=== PATIENT | male | born 1995 | race Hispanic/Latino ===

== ENCOUNTER 2021-05-07 18:36 | Emergency (ER) | payer MEDICAID, OTHER ==
[~2021-05-07] VITALS: Ht 167.6 cm; Wt 52.2 kg
[2021-05-07] MEDS ORDERED: LIDOCAINE HCL 400MG/20ML VIAL ONE (18:48)
[2021-05-07] MEDS ORDERED: MUPI22OI2 TP (19:19)
[2021-05-07 20:58] VITALS: BP 124/64
[2021-05-07] MEDS ORDERED: TETANUS/DIPHTHERIA TOXOID [ADULT] 0.5 ML VIAL IM ONE (21:00)
== END 2021-05-07 20:35 | disposition home or self-care (01) ==
LOC: EDH 18:36
DX: S61.101A Unspecified open wound of right thumb with damage to nail, initial encounter (principal); W22.8XXA Striking against or struck by other objects, initial encounter; Y93.89 Activity, other specified; Y92.89 Other specified places as the place of occurrence of the external cause; Y99.8 Other external cause status
CPT/HCPCS: 11730; 90471; 90714; 99284; J3490

== ENCOUNTER 2025-02-01 19:00 | Emergency (ER) | payer BC, OTHER ==
[~2025-02-01] VITALS: Ht 165.1 cm; Wt 56.7 kg
[~2025-02-01 19:00] MED LIST: MUPI22OI2 TP
--- NOTE | 2025-02-01 20:08 | NUR ---
SITTIN IN LOBBY, GOOD CHEST RISE AND FALL OBSERVED
--- NOTE | 2025-02-01 20:09 | NUR ---
TRIAGE EDIT, PT RECALLED UPDATED IMMUNIZATION INFORMATION
[2025-02-01 20:10] VITALS: BP 118/76; PULSE 74; RESP 16; TEMP 98; O2SAT 100
--- NOTE | 2025-02-01 20:30 | ERN ---
General Chief Complaint: Laceration/Avulsion Stated Complaint: LACERATION RT EYE Time Seen by MD: 19:12 Time Seen by Midlevel: 19:12 Source: patient History of Present Illness Initial Comments 29-year-old male presents with the superficial laceration to the right upper eyelid that occurred just prior to arrival while he was working under a car. Allergies: Coded Allergies: No Known Allergies (Unverified Allergy, Unknown, 05/07/21) Home Meds Active Scripts Mupirocin (Mupirocin Ointment) 22 Gm Oint, 1 GM TP TID for avulsion for 7 Days, #30 G Prov:LEESA ALBA [employer] 05/07/21 Past Medical History Past Medical History: No Pertinent History Past Surgical History: None Social History Social History: Lives with family ROS Dictation CONSTITUTIONAL: Negative except for HPI HEAD/FACE: Negative except for HPI EENT: Negative except for HPI RESPIRATORY: Negative except for HPI GASTROINTESTINAL/ABDOMINAL: Negative except for HPI GENITOURINARY: Negative except for HPI MUSCULOSKELETAL: Negative except for HPI INTEGUMENTARY: Negative except for HPI NEUROLOGICAL/PSYCH: Negative except for HPI HEMATOLOGIC/LYMPHATIC: Negative except for HPI All Systems Negative, Except as noted above. 13 point review of systems assessed and all negative except for above. Physical Exam Physical Exam Dictation PHYSICAL EXAM: GENERAL: alert,, awake oriented x 3 HEENT: EOMI, Sclera non icteric, moist mucosa NECK: Supple, no JVD, trachea midline LUNGS: Clear breath sounds bilaterally. No wheezes HEART: Regular rate and rhythm. Normal S1 and S2, without murmurs ABD: Abdomen soft, nontender. Bowel sounds present EXT: No clubbing or cyanosis, NEURO: Alert and oriented to person, follows commands SKIN: There is a small1 cm superficial laceration to the right upper eyelid MDM MDM: Differential diagnosis: Eyelid laceration, contusion There are no social concerns with this patient. Prescription drug management Prescriptions will include: None Medical management and examination interpretation discussions were had by me with other qualified healthcare professionals as indicated for the patient's care. ED Course Vital Signs Date Time Temp Pulse Resp B/P (MAP) Pulse Ox O2 Delivery O2 Flow Rate FiO2 02/01/25 20:10 98.1 74 16 118/76 100 Room Air* 0 21 02/01/25 19:02 97.2 77 16 148/81 98 Room Air Procedure Dictation Procedure Name: Laceration Repair Indication: Reduce risk of infection Location: Right upper eyelid measuring 1 cm Pre-Procedure Diagnosis: Laceration Post-Procedure Diagnosis: Repaired Laceration Informed consent was obtained before procedure started. PROCEDURE: The appropriate timeout was taken. The area was prepped and draped in the usual sterile fashion. The wound was copiously irrigated. Laceration was successfully repaired with Dermabond. Estimated blood loss was less than 0.5 mL. A dressing was applied to the area and anticipatory guidance, as well as standard post-procedure care, was explained. Return precautions are given. The patient tolerated the procedure well without complications. Follow-up visit set for suture removal and evaluation of the laceration. DX & DISP Disposition: Discharge Departure Impression: Primary Impression: Eyelid laceration, right Condition: Stable Referrals: NONE (PCP) Time of Disposition: 20:29 I have reviewed the case, and I agree with, Diagnosis and Plan I performed the substantive portion of the visit. I have reviewed and personally made and approve the management plan that is documented in the note by myself or the [facility]. I acknowledge for responsibility for the patient's management plan. LILLIE BENITEZ Feb 01, 2025 20:30
== END 2025-02-01 20:30 | disposition home or self-care (01) ==
LOC: EDH 19:00
DX: S01.111A Laceration without foreign body of right eyelid and periocular area, initial encounter (principal); X58.XXXA Exposure to other specified factors, initial encounter; Y93.89 Activity, other specified; Y92.89 Other specified places as the place of occurrence of the external cause; Y99.8 Other external cause status
CPT/HCPCS: 12011; 99282